=== PATIENT | male | born 1975 | race Caucasian/White ===

== ENCOUNTER → 2017-08-14 | Outpatient (CLI) | payer BC ==
--- NOTE | 2017-08-14 12:40 | DIAGNOSTIC IMAGING REPORT ---
SCROTAL ULTRASOUND CLINICAL HISTORY: Testicular lump and pain. COMPARISON STUDY: None. TECHNIQUE: Grayscale and color and duplex Doppler sonography of the scrotum was performed. FINDINGS: The right testis measures 4.3 x 1.9 x 2.6 cm and left measures 4.8 x 2.1 x 3 cm. There is no testicular mass. Color flow within each testis is symmetric. Note is made of a 1.1 cm cyst which is superior to the right epididymis and testis which represents the palpable abnormality. There are no suspicious lesions on this exam. There are small bilateral epididymal cysts and a small left varicocele. IMPRESSION: 1. Normal sonographic appearance of the testes. No testicular mass or evidence of testicular torsion. 2. 1.1 cm cyst superior to the right epididymis and testis which represents the palpable abnormality. This is benign. 3. Small left varicocele. Electronically signed by: Darin Murry M.D. 08/14/2017 12:39 PM Dictated Date/Time: 08/14/2017 12:36 PM
[2017-08-14 13:56] LABS: ALBUMIN 4.5 gm/dl (3.4-5.0); ALT/SGPT 65 U/L (12-78); BLOOD UREA NITROGEN 16 mg/dl (7-18); CALCIUM 9.8 mg/dl (8.5-10.1); CARBON DIOXIDE 29 mmol/L (21-32); CHOLESTEROL 195 mg/dl (0-200); CREATININE 0.88 mg/dl (0.60-1.40); GLUCOSE 91 mg/dl (70-99); POTASSIUM 4.2 mmol/L (3.5-5.1); SODIUM 137 mmol/L (136-145)
[2017-08-14 14:05] LABS: ALKALINE PHOSPHATASE 49 U/L (45-117); AST/SGOT 35 U/L (15-37); LDL CHOLESTEROL CALCULATED 121 mg/dl; TOTAL PROTEIN 7.8 gm/dl (6.4-8.2)
== END | disposition home or self-care (01) ==
LOC: C.ULTRBC 11:10
PROVIDERS: ATTEND Nurse Practitioner Family
DX: N50.819 Testicular pain, unspecified (principal); N50.3 Cyst of epididymis; N44.2 Benign cyst of testis; E78.5 Hyperlipidemia, unspecified; I10 Essential (primary) hypertension